=== PATIENT | female | born 1970 | race Caucasian/White ===

== ENCOUNTER → 2017-05-31 15:11 | Outpatient (CLI) | payer BC, SELFPAY ==
--- NOTE | 2017-05-31 | TOBX_PTH ---
PATIENT: DAVID MAGUIRE LOC: [facility] U#:[id number] AGE/SX: 54/F ROOM: RE05/31/[address]: Dr. Ed Puri DDS : 1970 BED: DIS: SPEC #: [id number] RECD: 05/31/17 14:30 STATUS: SOLOMON YAW #: [id number] TAMMY: 05/31/17 00:[address]: dE Puri DEPT: SURGICAL PATHOLOGY RECD BY: Brigid Charles ENTERED: 06/01/17 09:28 SP TYPE: TONGUE BX OTHR DR: Dr. 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 Focal mild epithelial hyperplasia. SJ:rg 06/01/17 MICROSCOPIC DESCRIPTION Slides are reviewed. GROSS DESCRIPTION Received in fixative is one container labeled with the patient's name and designated tongue. The specimen consists of a piece of magdaleno mucosal tissue measuring 0.5 x 0.5 x 0.3 cm. The specimen is inked and submitted entirely in one cassette. It will be bisected at the time of embedding. / SJ:mark 05/31/17 TC:5 [facility]: [id number]
== END ==
PROVIDERS: Family Provider Internal Medicine; PCP Internal Medicine; Visit Provider Dentist Oral and Maxillofacial Surgery
DX: D10.1 Benign neoplasm of tongue (principal)
CPT/HCPCS: 88305

== ENCOUNTER → 2017-12-28 14:42 | Outpatient (CLI) | payer BC, SELFPAY | PROVIDERS: Family Provider Internal Medicine; PCP Internal Medicine; Visit Provider Internal Medicine | DX: Z12.31 Encounter for screening mammogram for malignant neoplasm of breast (principal); N63.21 Unspecified lump in the left breast, upper outer quadrant | CPT/HCPCS: 77063; 77067 ==

== ENCOUNTER → 2018-01-04 12:42 | Outpatient (CLI) | payer BC, SELFPAY ==
[2018-01-04 13:10] VITALS: BP 163/94; PULSE 71; RESP 14; O2SAT 99; BMI 51.6
--- NOTE | 2018-01-05 08:49 | CA.SCORE ---
Calcium Scoring Date of Study:: 01/04/18 Coronary Calcium Scoring: Coronary calcium score: 0.0 Conclusion: Coronary calcium score: 0.0 Results: The patient underwent high resolution CT imaging of the chest on 01/04/2018 with attention to the coronary arteries. The images were examined and analyzed for the presence of coronary artery calcification using coronary calcium quantification software. The patient was reported as tolerating the procedure well with no adverse events. The coronary calcium score was reported at 0.0. According to pre-published reference tables a coronary calcium score of 0.0 is indicative of a very low cardiovascular disease risk and less than 5% chance of the presence of coronary artery disease. Impression: Coronary calcium score: 0.0 This note was generated with [employer] dictation software. It may contain incorrect words, spelling, and punctuation that were not noted in checking the note before signing.
== END ==
PROVIDERS: Family Provider Internal Medicine; PCP Internal Medicine; Visit Provider Internal Medicine
DX: E78.00 Pure hypercholesterolemia, unspecified (principal); E11.9 Type 2 diabetes mellitus without complications; R79.89 Other specified abnormal findings of blood chemistry; R79.82 Elevated C-reactive protein (CRP); N60.02 Solitary cyst of left breast
CPT/HCPCS: 75571; 76380; 76642

== ENCOUNTER → 2018-06-07 10:23 | Outpatient (CLI) | payer BC, SELFPAY ==
--- NOTE | 2018-06-07 10:34 | MRI_ITS ---
STUDY: MRI LUMBAR SPINE WITHOUT CONTRAST REASON FOR EXAM: Female, 47 years old. Low back pain radiating to left leg TECHNIQUE: Standardized fat and water weighted pulse sequences were obtained in the sagittal and axial planes. COMPARISON: None FINDINGS: T12-L1: Normal endplates. Normal disc height, hydration and morphology. Normal bilateral facet joints. Normal central canal and bilateral lateral recesses. Normal bilateral intervertebral neural foramina. Normal lumbar lordosis. There is no substantial scoliosis. Normal conus medullaris that terminates at the L1-2: Normal endplates. Normal disc height, hydration and morphology. Normal bilateral facet joints. Normal central canal and bilateral lateral recesses. Normal bilateral intervertebral neural foramina. L2-3: Normal endplates. Narrowed disc space desiccation of the disc and minor annular bulge.. Normal bilateral facet joints. Normal central canal and bilateral lateral recesses. Normal bilateral intervertebral neural foramina. L3-4: Normal endplates. Normal disc height, hydration and mild annular bulge. Bilateral facet arthropathy and thickening of ligamenta flava.. Normal central canal. Moderate bilateral recess and neural foraminal stenosis.. L4-5: Grade 1 spondylolisthesis Degenerative endplate changes. Narrowed disc space with desiccation of the disc and mild bulging disc osteophyte complex with small left paracentral disc extrusion with superior migration of disc fragment. Bilateral facet arthropathy and thickening of ligamenta flava. Moderate narrowing of the central canal. Severe bilateral recess and neuroforaminal stenosis exaggerated by shortened pedicles as well as moderate left supraclavicular stenosis L5-S1: Normal endplates. Normal disc height, hydration and minor annular bulge. Bilateral facet arthropathy.. Normal central canal and bilateral lateral recesses. Normal bilateral intervertebral neural foramina. Normal visualized sacral ala. Normal visualized paraspinous soft tissue structures. MRI/Spine Lumbar (Routine) IMPRESSION: No evidence for acute fracture or subluxation. Moderate spondylosis Spinal stenosis at L3-4 and more severe at L4-5 greater on the left secondary to disc disease and bony hypertrophy exaggerated by shortened pedicles. Findings as above Electronically Signed: Osvaldo Mejia MD at 22:04 EST , Service support ,
== END ==
PROVIDERS: Family Provider Internal Medicine; PCP Internal Medicine; Referring Provider Internal Medicine; Visit Provider Internal Medicine
DX: M54.42 Lumbago with sciatica, left side (principal); G89.29 Other chronic pain
CPT/HCPCS: 72148

== ENCOUNTER 2018-12-17 10:54 | Day surgery (SDC) | payer BC, SELFPAY ==
[2018-12-17] VITALS (7 sets, daily range): BP systolic 128–157; BP diastolic 76–92; PULSE 72–76; RESP 16–18; TEMP 36.4–36.9; O2SAT 97–100; BMI 49.4
[2018-12-17 11:20] LABS: Internal QC Validated? YES +Cl - CLEAR BKGD; Pregnancy, Urine Negative Negative
--- NOTE | 2018-12-17 12:54 | RAD_ITS ---
STUDY: CAUDAL BLOCK REASON FOR EXAM: Female, 48 years old. Pain RADIATION DOSAGE (If Supplied By Facility): CTDIvol = ( ) mGy, DLP = ( ) mGycm. Individualized dose optimization techniques were used for this CT.? FLUOROSCOPY TIME (if supplied): (0:11) minutes/seconds TECHNIQUE: Single intraoperative fluoroscopy image as permanent record COMPARISON: None. FINDINGS: Intraoperative fluoroscopy utilized as image guidance during caudal block. Please refer to the procedure report regarding details of the procedure. RAD/Fluor Guidance for Spine Inj IMPRESSION: As above. Electronically Signed: Del Ling MD at 18:21 EDT Tel [phone], Service support ,
[2018-12-17] MEDS: MethylPREDNISolone Acetate 80 MG/ML Vial (12:59)
[2018-12-17] MEDS: Bupivacaine 0.25% 30 ML Vial (12:59)
--- NOTE | 2018-12-17 19:01 | PCM.OPRPT ---
Problem List (1) Degeneration of lumbar or lumbosacral intervertebral disc Status: Chronic (2) Radiculopathy of lumbosacral region Status: Chronic Report of Operation Date of Procedure: 12/17/18 Description of Surgical Findings:: PROCEDURE: Diagnostic/therapeutic caudal epidural steroid injection PREOPERATIVE DIAGNOSIS: Lumbosacral radiculopathy, lumbosacral degenerative disc disease, lumbosacral spinal stenosis POSTOPERATIVE DIAGNOSIS: Lumbosacral radiculopathy, lumbosacral degenerative disc disease, lumbosacral spinal stenosis ANESTHESIA: MAC COMPLICATIONS: None BLOOD LOSS: Minimal PROCEDURE IN DETAIL: History and physical today was reviewed. Risks and benefits of the procedure were explained. The patient understood, agreed to our procedure, and informed consent was obtained. IV inserted per routine protocol. The patient was taken to the operating room, placed in a prone position with a pillow positioned underneath the abdomen. The lower back area was prepped and draped in a sterile fashion using iodine x3 under fluoroscopy guidance on the lateral view the caudal space was identified the skin and subcutaneous tissue and size approximately 3 cc of 1% lidocaine using a 25-gauge regular needle under direct visualization fluoroscopy using a 22-gauge 3-1/2 inch spinal needle the needle was advanced via the skin through the sacral hiatus tip of the needle passed through the sacrococcygeal ligament advanced approximately S4 area after negative aspiration for blood or CSF a total of 3 cc of contrast were injected to confirm correct placement of the needle as well as cephalad spread the spread was followed to approximately L5 area after negative aspiration for blood or CSF and confirmation AP as well as lateral view a total of 15 cc of preservative-free 0.125% Marcaine with 80 mg of Depo-Medrol were injected easily. The needles were then removed intact. The patient experienced no signs or symptoms intrathecal, intravascular injection. The patient experienced no paraesthesia. The procedure was completed without any apparent difficult, any complication. The patient appeared to tolerate well. ASSESSMENT AND PLAN: This is a 48-year-old female with lumbosacral radiculopathy, lumbosacral degenerative disc disease, lumbosacral spinal stenosis status post diagnostic/therapeutic caudal epidural steroid injection. The patient will continue her current medications. The patient will follow in approximately 2 weeks for reevaluation.
== END 2018-12-17 14:05 | disposition home or self-care (01) ==
LOC: SDC 11:01 → AC 11:01
PROVIDERS: Anesthesiology; Family Provider Internal Medicine; PCP Internal Medicine; Referring Provider Anesthesiology Pain Medicine; Visit Provider Anesthesiology Pain Medicine
PROC: 3E0S3BZ Introduction of Anesthetic Agent into Epidural Space, Percutaneous Approach (ICD-10-PCS; CPT 62282; principal; 2018-12-17 12:15)
DX: M51.17 Intervertebral disc disorders with radiculopathy, lumbosacral region (principal); M48.07 Spinal stenosis, lumbosacral region; D64.9 Anemia, unspecified; F41.9 Anxiety disorder, unspecified; F32.9 Major depressive disorder, single episode, unspecified; E06.9 Thyroiditis, unspecified; I10 Essential (primary) hypertension; J45.909 Unspecified asthma, uncomplicated; G47.30 Sleep apnea, unspecified; E03.9 Hypothyroidism, unspecified; R01.1 Cardiac murmur, unspecified; M19.90 Unspecified osteoarthritis, unspecified site; Z79.891 Long term (current) use of opiate analgesic; Z79.899 Other long term (current) drug therapy
CPT/HCPCS: 62323; 64490; 77003; 81025; J7120; J3490

== ENCOUNTER → 2019-11-06 12:47 | Outpatient (CLI) | payer BC, SELFPAY ==
[2018-12-17 11:22] VITALS: BMI 49.4
--- NOTE | 2019-11-06 12:49 | BI_ITS ---
MAMMOGRAPHY - BILATERAL SCREENING REASON FOR EXAM: Female, 49 years old. Routine annual screening examination. PERTINENT HISTORY: Aunt with breast cancer. TECHNIQUE: Digital bilateral breast apolinar (3D mammographic acquisition) in the CC and MLO projections. 2-D mediolateral oblique (MLO) and craniocaudad (CC) views of both breasts were obtained. CAD: Full Field Digital Mammography with Computer Added Detection was performed. COMPARISON: Comparison is made with prior examination dated December 28, 2017 and October 27, 2016. FINDINGS: Breast Composition: The breasts are heterogeneously dense, which may obscure small masses. There is a 9 mm well-defined nodule in the deep slightly central and lateral aspect of the right breast. Correlation with ultrasound is recommended. Stable 8 mm x 7 mm well-defined nodule in the upper-outer aspect of the left breast. This was demonstrated to be a cyst on prior ultrasound of the left breast. Stable benign-appearing bilateral axillary lymph nodes. No other significant abnormalities are identified. BI/SCREEN MAMM (CAD) W/APOLINAR BILAT IMPRESSION: 9 mm well-defined nodule in the deep slightly lateral aspect of right breast as described. Correlation with ultrasound is recommended. ASSESSMENT CATEGORY: BIRADS Category 0: Incomplete. Need additional imaging evaluation. A letter regarding these results will be sent to the patient by the facility within 30 days. Approximately 10% of breast cancers are not detected by mammography. A normal mammogram should not delay biopsy of a clinically suspicious abnormality. [id number] Electronically Signed: Siva Nelson, at 13:58 EDT , Service support ,
== END ==
PROVIDERS: PCP Internal Medicine; Referring Provider Internal Medicine; Visit Provider Internal Medicine
DX: Z12.31 Encounter for screening mammogram for malignant neoplasm of breast (principal)
CPT/HCPCS: 77063; 77067

== ENCOUNTER → 2019-11-08 10:37 | Outpatient (CLI) | payer BC, SELFPAY ==
[2018-12-17 11:22] VITALS: BMI 49.4
--- NOTE | 2019-11-08 10:39 | US_ITS ---
STUDY: ULTRASOUND BREAST - RIGHT REASON FOR EXAM: Female, 49 years old. Abnormal screening mammogram. TECHNIQUE: Axial and longitudinal images of the RIGHT breast were performed with a high resolution ultrasound transducer. # OF IMAGES: 35 COMPARISON: Comparison is made with prior mammogram dated November 05, 2009. FINDINGS: RIGHT Breast: The lateral half of the right breast was examined by ultrasound. No sonographic abnormality is seen. The proximal abnormality on the mammogram represents a skin. US/Breast Limited Unilateral IMPRESSION: Unremarkable ultrasound of the right breast. ASSESSMENT CATEGORY: BIRADS Category 1: Negative. A letter regarding these results will be sent to the patient by the facility within 30 days. Electronically Signed: Siva Nelson, at 14:18 EDT , Service support ,
--- NOTE | 2019-11-08 11:01 | BI_ITS ---
MAMMOGRAPHY - BILATERAL SCREENING REASON FOR EXAM: Female, 49 years old. Routine annual screening examination. PERTINENT HISTORY: Aunt with breast cancer. TECHNIQUE: Digital bilateral breast miarnda (3D mammographic acquisition) in the CC and MLO projections. 2-D mediolateral oblique (MLO) and craniocaudad (CC) views of both breasts were obtained. CAD: Full Field Digital Mammography with Computer Added Detection was performed. COMPARISON: Comparison is made with prior examination dated December 28, 2017 and October 27, 2016. FINDINGS: Breast Composition: The breasts are heterogeneously dense, which may obscure small masses. There is a 9 mm well-defined nodule in the deep slightly central and lateral aspect of the right breast. Correlation with ultrasound is recommended. Stable 8 mm x 7 mm well-defined nodule in the upper-outer aspect of the left breast. This was demonstrated to be a cyst on prior ultrasound of the left breast. Stable benign-appearing bilateral axillary lymph nodes. No other significant abnormalities are identified. BI/DIAG MAMM W/CAD, UNILAT IMPRESSION: 9 mm well-defined nodule in the deep slightly lateral aspect of right breast as described. Correlation with ultrasound is recommended. ASSESSMENT CATEGORY: BIRADS Category 0: Incomplete. Need additional imaging evaluation. A letter regarding these results will be sent to the patient by the facility within 30 days. Approximately 10% of breast cancers are not detected by mammography. A normal mammogram should not delay biopsy of a clinically suspicious abnormality. [id number] Electronically Signed: Siva Nelson, at 13:58 EDT , Service support ,
== END ==
PROVIDERS: PCP Internal Medicine; Referring Provider Internal Medicine; Visit Provider Internal Medicine
DX: N63.10 Unspecified lump in the right breast, unspecified quadrant (principal)
CPT/HCPCS: 76642; 77065

== ENCOUNTER 2020-04-27 12:23 | Outpatient (CLI) | payer BC, SELFPAY ==
[2020-04-27 09:32] VITALS: BMI 49.1
[2020-04-27 12:47] VITALS: BP 144/105; PULSE 90; RESP 20; TEMP 36.9; O2SAT 99
[2020-04-27 12:48] VITALS: BMI 49.1
[2020-04-27] MEDS: 0.9% Saline Lock 10 ML Syringe IV (13:07)
[2020-04-27 13:42] VITALS: BP 130/89; PULSE 81; RESP 18; TEMP 37.2; O2SAT 99
[2020-04-27 14:12] VITALS: BP 128/73; PULSE 74; RESP 18; TEMP 37.2; O2SAT 98
[2020-04-27 14:43] VITALS: BP 135/76; PULSE 80; RESP 18; TEMP 37.2; O2SAT 98
[2020-04-27 15:25] VITALS: BP 153/96; PULSE 86; RESP 18; TEMP 37.1; O2SAT 98
== END 2020-04-27 15:25 | disposition home or self-care (01) ==
LOC: MS2OUT 12:23
PROVIDERS: PCP Internal Medicine; Visit Provider Nurse Practitioner Acute Care
DX: R07.1 Chest pain on breathing (principal)
CPT/HCPCS: 96365; J7040; J7050; M0239; Q0239

== ENCOUNTER → 2020-08-05 13:13 | Outpatient (CLI) | payer SELFPAY ==
--- NOTE | 2020-08-05 13:21 | CT_ITS ---
CT HEART QUANTITATIVE CORONARY CALCIUM SCORING WITHOUT CONTRAST INJECTION-CT chest Overread INDICATION: Hyperlipidemia COMPARISON: None. TECHNIQUE: Degenerative changes are present in the spine. On dedicated calcium scoring software. CT scan done according to ALARA (As Low As Reasonably Achievable). FINDINGS: The parenchymal windows with limited field of view show no signs of an acute infiltrate or pulmonary mass. There are no effusions. The visualized segments of the primary bronchi are clear. The mediastinal windows with limited [id number] show no signs of hilar or mediastinal adenopathy. There is no discrete chest wall mass. The visualized segments of the upper abdominal viscera are unremarkable. CT/Limited Chest CT w/CCTA IMPRESSION: 1. No demonstrated acute or focal abnormality of the chest. Electronically Signed: Alvarez Alejandra MD at 19:44 EDT , Service support ,
[2020-08-05 13:29] VITALS: BP 149/81; PULSE 75; RESP 18; TEMP 37.2; O2SAT 97; BMI 48.6
--- NOTE | 2020-08-05 21:25 | CA.SCORE ---
Calcium Scoring Date of Study:: 08/05/20 Coronary Calcium Scoring: High-resolution Computed Tomographic imaging of the chest was performed on 08/05/2020 with particular attention paid to the coronary arteries. Images from the examination were analyzed for the presence and extent of coronary artery calcification , using coronary calcium quantification software. The patient tolerated the procedure well and there were no complications. The results of the coronary calcification analysis are provided below. - Findings Left Main (LM): 0 Left Anterior Descending (LAD): 0 Left Circumflex (LCX): 0 Right Coronary Artery (RCA): 0 Total Agatston Score: 0 Percentile Ranking: Based upon prepublished reference tables approximately 50% of people of the same gender and similar age had the same and/or lower scores. Calcium Scoring Interpretation: 0 No identifiable atherosclerotic plaque. Very low cardiovascular disease risk. <5% chance of presence coronary artery disease A Negative Examination 1-10 Minimal Plaque burden. Significant coronary artery disease very unlikely. 11-100 Mild plaque burden. Likely mild or minimal coronary atherosclerosis. 101-400 Moderate plaque burden Moderate non-obstructive coronary artery disease highly likely. Over 400 Extensive plaque burden. High likelihood of at least one significant coronary stenosis (>50% diameter) Calcium Score: 0 Negative Examination - Continue cardiovascular risk factor evaluation and care as deemed appropriate.
== END ==
PROVIDERS: PCP Internal Medicine; Referring Provider Internal Medicine; Visit Provider Internal Medicine
DX: E78.5 Hyperlipidemia, unspecified (principal); E78.00 Pure hypercholesterolemia, unspecified
CPT/HCPCS: 75571; 76380

== ENCOUNTER → 2022-09-21 | Outpatient (CLI) | payer BC, SELFPAY ==
--- NOTE | 2022-09-21 12:42 | US_ITS ---
EXAM: US PELVIS TRANSVAGINAL CLINICAL INDICATION: Irregular Period TECHNIQUE: Transvaginal pelvic ultrasound was performed with grayscale and color Doppler imaging. Transvaginal imaging was used for better evaluation of the endometrium and adnexa. COMPARISON: No relevant prior studies available. FINDINGS: UTERUS/CERVIX: 8.3 cm x 5.8 cm x 5.4 cm. There is no uterine mass. Normal endometrial stripe thickness of 4 mm. RIGHT OVARY: Unremarkable. 2.4 cm x 1.7 cm x 1.2 cm. Non-enlarged, normal echogenicity. Blood flow is not well-demonstrated but normal size. LEFT OVARY: Unremarkable. 1.8 cm x 2.1 cm x 1 cm. Non-enlarged, normal echogenicity. Blood flow is present in the left ovary. FREE FLUID: None. BLADDER: Empty bladder which cannot be evaluated with this probe. US/Transvaginal Non- IMPRESSION: Unremarkable pelvic ultrasound. Thin endometrium. Electronically Signed: Nedra Honeycutt MD at 5:47 EDT ,
--- NOTE | 2022-09-21 12:42 | BI_ITS ---
MAMMOGRAPHY - BILATERAL SCREENING REASON FOR EXAM: Female, 52 years old. Routine annual screening examination. PERTINENT HISTORY: Aunt with breast cancer. TECHNIQUE: Digital bilateral breast apolinar (3D mammographic acquisition) in the CC and MLO projections. 2-D mediolateral oblique (MLO) and craniocaudad (CC) views of both breasts were obtained. CAD: Full Field Digital Mammography with Computer Added Detection was performed. COMPARISON: Mammogram from 11/08/2019, 12/28/2017. FINDINGS: Breast Composition: The breasts are heterogeneously dense, which may obscure small masses. Scattered well-circumscribed small benign cysts or intramammary lymph nodes are largely stable since 2019. No new suspicious masses. No suspicious calcifications. Stable small benign-appearing bilateral axillary nodes. No other significant abnormalities are identified. Overall, no significant interval change since 2019. BI/SCRN MAMM (CAD)W/APOLINAR BILAT IMPRESSION: Stable bilateral screening mammogram since 2019. Yearly follow-up mammogram recommended. (A) ASSESSMENT CATEGORY: BIRADS Category 2: Benign. A letter regarding these results will be sent to the patient by the facility within 30 days. Approximately 10% of breast cancers are not detected by mammography. A normal mammogram should not delay biopsy of a clinically suspicious abnormality. Electronically Signed: Dayne Street DO at 14:57 EDT ,
== END | disposition home or self-care (01) ==
PROVIDERS: PCP Internal Medicine; Referring Provider Internal Medicine; Visit Provider Internal Medicine
DX: Z12.31 Encounter for screening mammogram for malignant neoplasm of breast (principal); N92.6 Irregular menstruation, unspecified
CPT/HCPCS: 76830; 77063; 77067